=== PATIENT | male | born 1985 | race Caucasian/White ===

== ENCOUNTER 2018-06-14 08:22 | Emergency (ER) | payer SELFPAY ==
[~2018-06-14] VITALS: Ht 177.8 cm; Wt 101.2 kg
[~2018-06-14 08:22] MED LIST: LORTAB 5/500 501 TAB PO; NORCO 325 MG-51 TAB PO; PHENERGAN 25 TA25 MG PO
[2018-06-14 08:34] VITALS: BP 143/93; TEMP 99
[2018-06-14] MEDS ORDERED: AMOXICILLIN875 MG PO (08:45)
[2018-06-14] MEDS ORDERED: NORCO 325 MG-7.1 TAB PO (08:45)
[2018-06-14 08:58] VITALS: PULSE 90
== END 2018-06-14 08:59 | disposition home or self-care (01) ==
LOC: COL.ER 08:22
DX: S02.5XXA Fracture of tooth (traumatic), initial encounter for closed fracture (principal); K02.9 Dental caries, unspecified; K04.7 Periapical abscess without sinus; F41.9 Anxiety disorder, unspecified; F32.9 Major depressive disorder, single episode, unspecified; X58.XXXA Exposure to other specified factors, initial encounter